=== PATIENT | female | born 1965 ===

== ENCOUNTER 2018-02-10 05:56 | Day surgery (SDC) | payer OTHER | END 2018-02-10 09:50 | disposition home or self-care (01) | LOC: AMB-ENDOS 05:56 | DX: K64.2 Third degree hemorrhoids (principal); Z12.11 Encounter for screening for malignant neoplasm of colon ==

== ENCOUNTER 2024-01-18 05:35 | Day surgery (SDC) | payer OTHER ==
[2024-01-13 09:57] VITALS: BP 140/85
[2024-01-13 11:14] LABS: HEMATOCRIT 39.1 % (36.0-45.00); HEMOGLOBIN 13.6 g/dL (12.0-15.00); MEAN CORPUSCULAR HEMOGLOBIN 31.3 pg (27.00-32.0); MEAN CORPUSCULAR HGB CONC 34.8 g/dl (32.0-36.0); PLATELET COUNT 285 K/uL (150-450); RED BLOOD COUNT 4.34 M/uL (4.00-6.00); RED CELL DISTRIBUTION WIDTH 13.3 % (11.5-14.5)
[2024-01-13 11:16] LABS: URINE APPEARANCE Clear; URINE BILIRRUBIN Negative (NEGATIVE); URINE BLOOD Trace; URINE COLOR Yellow; URINE GLUCOSE Negative (NEGATIVE); URINE KETONE Negative (NEGATIVE); URINE LEUKOCYTE Moderate; URINE NITRATE Negative; URINE PROTEIN Negative (NEGATIVE); URINE UROBILINOGEN 0.2 E.U./dl
[2024-01-13 11:22] LABS: URINE BACTERIA 50.3 uL (0.0-1933); URINE RBC 9.4 uL (0.0-20.8); URINE WBC 16.8 uL (0.0-23.2)
[2024-01-13 11:41] LABS: INR 0.97; PARTIAL THROMBOPLASTIN TIME 25.4 SECONDS (22.0-34.0); PROTHROMBIN TIME 10.2 SECONDS (9.0-11.5)
[2024-01-13 12:03] LABS: ALBUMIN 4.2 gm/dL (3.4-5.0); BILIRUBIN TOTAL 0.58 mg/dL (0.3-1.2); CALCIUM 9.7 mg/dL (8.5-10.1); CREATININE SERUM 0.56 mg/dL (0.55-1.02); GFR 111.58; GLOBULINA 3.5 G/DL (2.4-3.5); POTASSIUM 4.5 mEq/L (3.5-5.1); TOTAL PROTEIN 7.7 gm/dL (6.4-8.2)
[~2024-01-18] VITALS: Ht 162.6 cm; Wt 65.8 kg
[2024-01-18] MEDS ORDERED: CLINDAMYCIN PHOSPHATE 150 MG/ML (900mg) IV ONE (11:15)
[2024-01-18] MEDS ORDERED: POVIDONE-IODINE 118 ML BOTT TOP ONE (11:15)
== END 2024-01-18 17:15 | disposition home or self-care (01) ==
LOC: CIR.AMB 05:35 → EDSTATUS 07:45 → CIR.AMB 07:45 → SURH 07:45 → CIR.AMB 17:15
PROVIDERS: ATTEND Obstetrics & Gynecology
DX: N72 Inflammatory disease of cervix uteri (principal); R87.810 Cervical high risk human papillomavirus (HPV) DNA test positive; R87.612 Low grade squamous intraepithelial lesion on cytologic smear of cervix (LGSIL); D25.0 Submucous leiomyoma of uterus; R10.2 Pelvic and perineal pain; Z88.0 Allergy status to penicillin